=== PATIENT | female | born 1965 | race Two or more races ===

== ENCOUNTER 2017-04-25 08:02 | Emergency (ER) | payer OTHER ==
[2017-04-25 08:07] VITALS: BP 152/95; PULSE 83; TEMP 98.2; BMI 23.0
[2017-04-25] MEDS ORDERED: KETOROLAC TROMETHAMINE 60 MG/2 ML VIAL IM ONE (08:48)
[2017-04-25] MEDS ORDERED: KETOROLAC TROMETHAMINE 60 MG/2 ML VIAL ONE (08:49)
--- NOTE | 2017-04-25 09:05 | PDOC ---
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 Pt states the pain radiates to her buttock and outer thigh. no abd pain neg urine or bowel complaints. no medical problems. Pain Location: reports: none Past History - Past Medical History Allergies/Adverse Reactions: Allergies Allergy/AdvReac Type Severity Reaction Status Date / Time No Known Allergies Allergy Verified 04/25/17 08:04 Home Medications: Ambulatory Orders Ranitidine [Zantac -] 150 mg PO BID #14 tablet 12/16/15 Cyclobenzaprine HCl [Flexeril -] 10 mg PO TID PRN #21 tablet 04/25/17 Naproxen [Naprosyn -] 500 mg PO BID PRN #14 tablet 04/25/17 COPD: No - Surgical History Abdominal Surgery: Yes (ABD) Appendectomy: Yes - Suicide/Smoking/Psychosocial Hx Smoking History: Never smoked Have you smoked in the past 12 months: No Information on smoking cessation initiated: No Hx Alcohol Use: No Drug/Substance Use Hx: No Substance Use Type: None Trauma Specific PMHX - Complaint Specific PMHX Arthritis: No Back Injury: No Neck Injury: No Hx Sacro Iliac Joint Dysfunction: No Review of Systems - Review of Systems Able to Perform ROS?: Yes Is the patient limited Bahamian proficient: No Constitutional: No: Symptoms Reported HEENTM: No: Symptoms Reported Respiratory: No: Symptoms reported Cardiac (ROS): No: Symptoms Reported ABD/GI: No: Symptoms Reported : No: Symptoms Reported Musculoskeletal: Yes: Symptoms Reported *Physical Exam - Vital Signs Last Vital Signs Temp Pulse Resp BP Pulse Ox 98.2 F 83 18 152/95 100 04/25/17 08:05 04/25/17 08:05 04/25/17 08:05 04/25/17 08:05 04/25/17 08:05 - Physical Exam General Appearance: Yes: Nourished, Appropriately Dressed HEENT: positive: EOMI, SHELBY, TMs Normal, Pharynx Normal Neck: positive: Supple Respiratory/Chest: positive: Lungs Clear, Normal Breath Sounds. negative: Chest Tender Cardiovascular: positive: Regular Rhythm, Regular Rate Gastrointestinal/Abdominal: positive: Normal Bowel Sounds, Soft. negative: Tender Musculoskeletal: positive: Normal Inspection, Decreased Range of Motion. negative: CVA Tenderness, CVA Tenderness (R), CVA Tenderness (L), Vertebral Tenderness Extremity: positive: Normal Capillary Refill, Normal Inspection, Normal Range of Motion Integumentary: positive: Normal Color, Dry, Warm Neurologic: positive: Fully Oriented, Normal Response, Motor Strength /5 ED Treatment Course - Medications Given in the ED: ED Medications Discontinued Medications Generic Name Dose Route Start Last Admin Trade Name Freq PRN Reason Stop Dose Admin Ketorolac Tromethamine 60 mg 04/25/17 08:48 04/25/17 08:49 Toradol Injection - IM 04/25/17 08:49 60 mg ONCE ONE Administration Medical Decision Making - Medical Decision Making 04/25/17 09:03 cc: sciatica left side to buttock no urine or bowel dysfunction neg groin or saddle numbness neg abd subramanian pain reproduced with movement will give toradol now dc home with naprosyn and flexeril steady gait on discharge no diffucuclty 04/25/17 17:24 *DC/Admit/Observation/Transfer Diagnosis at time of Disposition: Sciatica - Discharge Dispostion Disposition: HOME Condition at time of disposition: Good - Prescriptions Prescriptions: Cyclobenzaprine HCl [Flexeril -] 10 mg PO TID PRN #21 tablet PRN Reason: Muscle Spasms Naproxen [Naprosyn -] 500 mg PO BID PRN #14 tablet PRN Reason: Back Pain - Referrals Referrals: Matt Hinson MD [Primary Care Provider] - - Patient Instructions Additional Instructions: apply ice every 2hrs for 20 minutes then alternate with warm compress for 30 minutes - Post Discharge Activity
== END 2017-04-25 10:06 | disposition home or self-care (01) ==
LOC: JERFT 08:02
PROC: 3E0F7GC Introduction of Other Therapeutic Substance into Respiratory Tract, Via Natural or Artificial Opening (ICD-10-PCS; principal; 2017-04-25)
DX: M54.42 Lumbago with sciatica, left side (principal)
CPT/HCPCS: 94640; 99281-25

== ENCOUNTER 2017-11-04 00:25 | Emergency (ER) | payer OTHER ==
--- NOTE | 2017-11-04 01:10 | PDOC ---
History of Present Illness - General History Source: Patient Exam Limitations: No Limitations - History of Present Illness Initial Comments: 11/04/17 02:37 The patient is a 52 year old female, with no significant past medical history, who presents to the emergency department with, 1 week of vaginal symptoms. As per patient, over the past week she has been experiencing vaginal itching, pressure when urinating, and pelvic pain. She describes her pelvic pain as a burning sensation. She reports drinking a lot of water throughout the week. She is currently being evaluated for a thickened endometrium. Her LMP was one month ago. She denies any abnormal vaginal bleeding or discharge. She denies recent fevers , chills, headache or dizziness. She denies recent nausea, vomit, diarrhea or constipation. She denies recent dysuria, frequency, urgency or hematuria. She denies recent chest pain or shortness of breath. Allergies: NKA Past surgical history: None reported. Social history: Nonsmoker. Denies EtOH use and recreational drug use. Primary Care Physician: Dr. Carter <Deondre Roger - Last Filed: 11/04/17 02:37> <Lindsay Benítez - Last Filed: 11/04/17 20:08> - General Stated Complaint: URINARY PROBLEM Time Seen by Provider: 11/04/17 01:10 Past History <Deondre Roger - Last Filed: 11/04/17 02:37> - Past Medical History COPD: No - Surgical History Abdominal Surgery: Yes (ABD) Appendectomy: Yes - Suicide/Smoking/Psychosocial Hx Smoking History: Never smoked Have you smoked in the past 12 months: No Hx Alcohol Use: No Drug/Substance Use Hx: No Substance Use Type: None <Lindsay Benítez - Last Filed: 11/04/17 20:08> - Past Medical History Allergies/Adverse Reactions: Allergies Allergy/AdvReac Type Severity Reaction Status Date / Time No Known Allergies Allergy Verified 11/04/17 01:41 Home Medications: Ambulatory Orders Ranitidine [Zantac -] 150 mg PO BID #14 tablet 12/16/15 Cyclobenzaprine HCl [Flexeril -] 10 mg PO TID PRN #21 tablet 04/25/17 Naproxen [Naprosyn -] 500 mg PO BID PRN #14 tablet 04/25/17 Review of Systems - Review of Systems Able to Perform ROS?: Yes Comments:: 11/04/17 02:37 GENERAL/CONSTITUTIONAL: No fever or chills. No weakness. HEAD, EYES, EARS, NOSE AND THROAT: No change in vision. No ear pain or discharge. No sore throat. CARDIOVASCULAR: No chest pain or shortness of breath. RESPIRATORY: No cough, wheezing, or hemoptysis. GASTROINTESTINAL: No nausea, vomiting, diarrhea or constipation. GENITOURINARY: Vaginal itching. Pelvic pain. Pressure when urinating. No dysuria , frequency, or change in urination. MUSCULOSKELETAL: No joint or muscle swelling or pain. No neck or back pain. SKIN: No rash NEUROLOGIC: No headache, vertigo, loss of consciousness, or change in strength/ sensation. ENDOCRINE: No increased thirst. No abnormal weight change. HEMATOLOGIC/LYMPHATIC: No anemia, easy bleeding, or history of blood clots. ALLERGIC/IMMUNOLOGIC: No hives or skin allergy. All Other Systems: Reviewed and Negative <Deondre Roger - Last Filed: 11/04/17 02:37> *Physical Exam - Vital Signs Last Vital Signs Temp Pulse Resp BP Pulse Ox 98.1 F 70 19 130/95 100 11/04/17 01:00 11/04/17 01:00 11/04/17 01:00 11/04/17 01:00 11/04/17 01:00 - Physical Exam Comments: 11/04/17 02:50 GENERAL: Awake, alert, and fully oriented, in no acute distress HEAD: No signs of trauma EYES: PERRLA, EOMI, sclera anicteric, conjunctiva clear ENT: Auricles normal inspection, hearing grossly normal, nares patent, oropharynx clear without exudates. Moist mucosa NECK: Normal ROM, supple, no lymphadenopathy, JVD, or masses LUNGS: Breath sounds equal, clear to auscultation bilaterally. No wheezes, and no crackles HEART: Regular rate and rhythm, normal S1 and S2, no murmurs, rubs or gallops ABDOMEN: Soft, nontender, normoactive bowel sounds. No guarding, no rebound. No masses PELVIC: External genitalia normal without lesions. Vaginal vault is clear without blood or discharge. Cervix is long and closed. No cervical motion tenderness. Adnexa are nontender and without masses. EXTREMITIES: Normal range of motion, no edema. No clubbing or cyanosis. No cords, erythema, or tenderness NEUROLOGICAL: Cranial nerves II through XII grossly intact. Normal speech, normal gait SKIN: Warm, Dry, normal turgor, no rashes or lesions noted. <Deondre Roger - Last Filed: 11/04/17 02:37> ED Treatment Course - ADDITIONAL ORDERS Additional order review: Laboratory Results 11/04/17 01:32 Urine Color Colorless Urine Appearance Clear Urine pH 7.0 Ur Specific [place] 1.004 Urine Protein Negative Urine Glucose (UA) Negative Urine Ketones Negative Urine Blood Negative Urine Nitrite Negative Urine Bilirubin Negative Urine Urobilinogen Negative Ur Leukocyte Esterase Negative <Deondre Roger - Last Filed: 11/04/17 02:37> Medical Decision Making - Medical Decision Making 11/04/17 20:05 Pt comes with an internal itch in her vaginal area; described as a pressure/ itchiness. SHe has a normal vag exam, no foul odor or discharge in the vault. Cervix is normal. No candidal rash. Pt has no other physical findings. She has no dysuria. Her UA is normal. <Lindsay Benítez - Last Filed: 11/04/17 20:08> *DC/Admit/Observation/Transfer - Attestations Scribe Attestion: 11/04/17 02:50 Documentation prepared by Deondre Roger, acting as biomedical engineering aide for Lindsay Benítez MD. <Deondre Roger - Last Filed: 11/04/17 02:37> - Discharge Dispostion Decision to Admit order: No <Lindsay Benítez - Last Filed: 11/04/17 20:08> Diagnosis at time of Disposition: Perimenopausal atrophic vaginitis - Discharge Dispostion Disposition: HOME Condition at time of disposition: Stable - Referrals Referrals: Avril Carter [Primary Care Provider] - - Patient Instructions Printed Discharge Instructions: Managing Symptoms of Menopause, Natural and Alternative Treatment Study Report: Black Cohosh vs. Prozac for, Nutrition and Menopause - Post Discharge Activity
[2017-11-04 01:42] VITALS: BP 130/95; PULSE 70; TEMP 98.1; BMI 28.1
[2017-11-04 01:46] LABS: URINE APPEARANCE CLEAR; URINE BILIRUBIN NEGATIVE (<2.0 mg/dL); URINE COLOR COLORLESS; URINE GLUCOSE (UA) NEGATIVE (NEGATIVE); URINE KETONE NEGATIVE (NEGATIVE); URINE LEUK ESTERASE NEGATIVE (NEGATIVE); URINE NITRITE NEGATIVE (NEGATIVE); URINE PROTEIN NEGATIVE (NEGATIVE); URINE UROBILINOGEN NEGATIVE mg/dL (0.2-1.0)
== END 2017-11-04 02:44 | disposition home or self-care (01) ==
LOC: JER 00:25
DX: N95.2 Postmenopausal atrophic vaginitis (principal)
CPT/HCPCS: 81003; 87086; 99281-25